=== PATIENT | male | born 2000 | race Caucasian/White ===

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

== ENCOUNTER 2022-05-05 10:23 | Emergency (ER) | payer OTHER ==
[~2022-05-05] VITALS: Ht 162.6 cm; Wt 59.0 kg
[2022-05-05 11:25] LABS: Source, Urine Clean Catch
[2022-05-05 11:37] LABS: Appearance, Urine Clear (Clear); Bilirubin, Urine Neg (Neg); Blood, Urine Neg (Neg); Color, Urine Yellow (P-Yellow); Glucose Qualitative, Urine Neg (Neg); Ketones, Urine Neg (Neg); Leukocyte Esterase, Urine Neg (Neg); Nitrite, Urine Neg (Neg); Protein, Urine Neg (Neg); Specific Gravity, Urine 1.005 (1.003-1.022); Urobilinogen, Urine NORM (Normal); pH, Urine 6.5 (5.0-8.0)
== END 2022-05-05 12:09 | disposition home or self-care (01) ==
LOC: ER 10:23
PROVIDERS: Student in an Organized Health Care Education/Training Program
DX: R39.9 Unspecified symptoms and signs involving the genitourinary system (principal); Z88.8 Allergy status to other drugs, medicaments and biological substances; Z79.899 Other long term (current) drug therapy
CPT/HCPCS: 81003

== ENCOUNTER 2025-01-14 06:00 | Day surgery (SDC) | payer OTHER ==
[~2025-01-14] VITALS: Ht 162.6 cm; Wt 78.0 kg
[2025-01-14] VITALS (11 sets, daily range): BP systolic 78–145; BP diastolic 47–129
[~2025-01-14 06:00] MED LIST changes: +ALBU2.5V5 INH; +CYCL10 PO; +IBUP100S PO
--- NOTE | 2025-01-14 06:52 | NUR ---
PATIENT ACCOMPANIED TO DAY SURGERY WITH HIS MOM, TELLY, WHO STATES PATIENT HAS NO LEGAL POA AND THAT HE SIGNS FOR HIMSELF. PATIENT ALLOWED THIS NURSE TO OBTAIN VS, LUNG AUSCULTATION AND IV START WITH ENCOURAGEMENT. PATIENT WILL NOT LAY IN GURNEY AND CHOOSES TO SIT IN CHAIR. WATCHING CELL PHONE SCREEN FOR DISTRACTION. FATHER AND AUNT ARE IN LOBBY.
[2025-01-14] MEDS ORDERED: CeFAZolin Sodium 2,000 MG in NS 100 ML IV SCH (07:00)
[2025-01-14] MEDS ORDERED: Bupivacaine 0.5% HCl 5 MG/ML 30MLVIAL ONE (07:01)
[2025-01-14] MEDS ORDERED: CeFAZolin Sodium 2,000 MG VIAL ONE (07:12)
[2025-01-14] MEDS ORDERED: Rocuronium Bromide 10 MG/ML 5ML Injection IV ONE (07:21)
[2025-01-14] MEDS ORDERED: Midazolam HCl 1MG / ML 2ML Vial ONE (07:22)
[2025-01-14] MEDS ORDERED: FentaNYL Citrate 50 MCG/ML 2 ML Injection ONE (07:23)
--- NOTE | 2025-01-14 07:25 | NUR ---
PLAN FOR PATIENT TO HAVE CLIP PREP IN OR AFTER ANESTHESIA TO ACCOMMODATE PATIENT BY DECREASING STIMULOUS IN PRE-OP.
[2025-01-14] MEDS ORDERED: Dexamethasone Sod Phos 10 MG/ML 1ML VIAL ONE (08:09)
[2025-01-14] MEDS ORDERED: Ondansetron HCl 2 MG / ML 2ML Vial ONE (08:09)
[2025-01-14] MEDS ORDERED: Sugammadex Sodium 200 MG/2ML SDV (100 MG/ML) ONE (09:16)
[2025-01-14] MEDS ORDERED: Ketorolac Tromethamine 30mg Vial ONE (09:16)
[2025-01-14] MEDS ORDERED: FentaNYL Citrate 50 MCG/ML 2 ML Injection IV PRN ×2 (09:25→09:30)
[2025-01-14] MEDS ORDERED: HYDROmorphone HCl/Pf 1MG SYR IV PRN (09:25)
[2025-01-14] MEDS ORDERED: Ondansetron HCl 2 MG / ML 2ML Vial IV PRN (09:25)
[2025-01-14] MEDS ORDERED: Ipratropium/Albuterol SulF 2.5-0.5MG/3 ML Amp ONE (10:22)
[2025-01-14] MEDS ORDERED: Ipratropium/Albuterol SulF 2.5-0.5MG/3 ML Amp INH ONE (10:25)
--- NOTE | 2025-01-14 11:09 | NUR ---
discharge note PT A&OX4, MOM AT BEDSIDE, PT HAS NO COMPLAINTS OF PAIN OR NAUSEA, IS VERY EAGER TO LEAVE. PT REFUSES ANY PO INTAKE- MOM EDUCATED ON WHAT TO DO IF PT BECOME NAUSEATED. PT UNCOOPERATIVE AT FIRST BUT BECAME MORE CALM DURING PHASE II, ABLE TO GIVE PT DUONEB, O2 SATS GREATLY IMPROVED. Patient up to Ambulate independently. Gait steady. Discharge instructions reviewed with patient. MOM verbalizes understanding. Copy given to patient/MOM to take home. Dressing to procedure site clean, dry, intact with no visible drainage, swelling, erythema or bruising noted. Discharged via wheelchair to private car for ride home.
== END 2025-01-14 11:00 | disposition home or self-care (01) ==
LOC: ORSCMMR 06:00 → ORD 07:30 → ORSCMMR 07:30
PROVIDERS: Surgery
PROC: 0YU50JZ Supplement Right Inguinal Region with Synthetic Substitute, Open Approach (ICD-10-PCS; principal; 2025-01-14 07:30)
DX: K40.90 Unilateral inguinal hernia, without obstruction or gangrene, not specified as recurrent (principal); J45.909 Unspecified asthma, uncomplicated; Q90.9 Down syndrome, unspecified; E03.9 Hypothyroidism, unspecified; Z79.899 Other long term (current) drug therapy
CPT/HCPCS: C1781; J0690; J1100; J1885; J2250; J2405; J2704; J3010; J7120